=== PATIENT | male | born 1955 | race Caucasian/White ===

== ENCOUNTER → 2016-07-27 | Outpatient (CLI) | payer OTHER ==
[~2016-07-27] MED LIST: ALPHAGAN OPHTH D5 ML OU; ASPIRIN 32325 MG/TA1 PO; ASPIRIN 32325 MG/TAB PO; ATIVAN 0.50.5 MG/TAB PO; CEPHALEXIN500 M1 PO; CLEOCIN HC150 MG/CAP PO; DEPAKOTE500 MG PO; DOXYCYCLINE 10100 MG PO; FLAGYL; FLAX OIL1000 MG; FOLIC ACID 40400 MCG PO; HYDROCODONE/APAP; IRON TABLETS325 MG PO; LEXAPRO20 MG PO; LIPITOR 10MG10 MG PO; MELATONIN3 M1 PO; MICARDIS 40MG40 MG PO; MICARDIS HCT 121 TAB PO; MIRALAX PA17 GM/Dose PO; MOTRIN 800800 MG/TAB PO; MULTIPLE VITAMI1 CAP PO; MYCARDIS; NORCO 325 MG-51 TAB PO; NORCO 325 MG-7.1 TAB PO; PRILOSEC 20MG20 MG PO; PRILOSEC10 MG PO; PROVIGIL 100MG100 MG PO; VITAMIN C500 MG PO; XALATAN EYE DROPS OD
== END ==
LOC: BHSO 08:58
DX: F41.1 Generalized anxiety disorder (principal)

== ENCOUNTER → 2016-09-10 | Outpatient (CLI) | payer OTHER | LOC: BHSO 10:20 | DX: F41.1 Generalized anxiety disorder (principal) ==

== ENCOUNTER → 2016-10-26 | Outpatient (CLI) | payer OTHER | LOC: BHSO 09:04 | DX: F43.10 Post-traumatic stress disorder, unspecified (principal) ==

== ENCOUNTER → 2016-12-28 | Outpatient (CLI) | payer OTHER | LOC: BHSO 09:46 | DX: F43.10 Post-traumatic stress disorder, unspecified (principal) ==

== ENCOUNTER → 2017-03-12 | Outpatient (CLI) | payer OTHER | LOC: BHSO 09:44 | DX: F43.10 Post-traumatic stress disorder, unspecified (principal) ==

== ENCOUNTER → 2017-06-15 | Outpatient (CLI) | payer OTHER | LOC: BHSO 09:47 | DX: F41.1 Generalized anxiety disorder (principal) ==

== ENCOUNTER → 2017-07-19 | Outpatient (CLI) | payer OTHER | LOC: BHSO 10:44 | DX: F41.1 Generalized anxiety disorder (principal) | CPT/HCPCS: G0463 ==

== ENCOUNTER → 2017-08-19 | Outpatient (CLI) | payer OTHER | LOC: BHSO 10:39 | DX: F41.1 Generalized anxiety disorder (principal) | CPT/HCPCS: G0463 ==

== ENCOUNTER → 2021-10-22 | Outpatient (CLI) | payer MEDICARE, OTHER | LOC: COL.RAD 13:22 | DX: M47.816 Spondylosis without myelopathy or radiculopathy, lumbar region (principal); M48.061 Spinal stenosis, lumbar region without neurogenic claudication ==

== ENCOUNTER 2022-01-03 20:43 | Inpatient (IN) | payer MEDICARE, OTHER ==
[~2022-01-03] VITALS: Ht 182.9 cm; Wt 107.3 kg
[~2022-01-03 20:43] MED LIST changes: -FLAX OIL1000 MG; +FLAXSEED OIL1000 MG PO; -MULTIPLE VITAMI1 CAP PO; +MULTIPLE VITAMI1 TA5 PO
[2022-01-03 23:03] LABS: HEMOGLOBIN 11.5 g/dl (13.5-18.0); MEAN CELL VOLUME 92 fl (80.0-100.0); MEAN CORPUSCULAR HEMOGLOBIN 31 pg (27-31); MEAN CORPUSCULAR HGB CONC 33 g/dl (33.0-37.0); MEAN PLATELET VOLUME 9.9 fl (7.4-10.4); PLATELET COUNT 163 K/mm3 (130-400); RED BLOOD COUNT 3.74 M/mm3 (4.20-5.60); REDCELL DISTRIBUTION WIDTH-CV 13.6 % (11.5-14.5)
[2022-01-03 23:07] LABS: HEMATOCRIT 34.5 % (42.0-52.0)
[2022-01-03 23:24] LABS: ALBUMIN 3.5 gm/dL (3.4-4.8); BILIRUBIN,TOTAL 0.5 mg/dL (0.2-1.2); C-REACTIVE PROTEIN 4.39 mg/dL (0.00-0.50); CALCIUM 8.7 mg/dL (8.4-10.2); CREATININE, serum 1.35 mg/dL (0.72-1.25); POTASSIUM 4.1 mmol/L (3.5-4.5); TOTAL PROTEIN 6.8 gm/dL (6.2-8.1)
[2022-01-04 00:08] LABS: BASOPHIL 2 % (0-2); EOSINOPHIL 2 % (0-4); LYMPHOCYTE 17 % (20.0-51.0); METAMYELOCYTE 1 % (0-0); NEUTROPHILS 67 % (42.0-75.2); PLATELET ESTIMATE NORMAL (NORMAL)
[2022-01-04 01:19] LABS: COLLECTION METHOD CLEAN CATCH
[2022-01-04 01:24] LABS: PH 6 (5-8); SQUAMOUS EPITHELIAL 0-2 /hpf (0-10); URINE APPEARANCE Clear (CLEAR/HAZY); URINE BACTERIA None Seen /hpf (NONE SEEN); URINE BILIRUBIN Negative (NEGATIVE); URINE BLOOD Negative (NEGATIVE); URINE COLOR Straw (YELLOW); URINE GLUCOSE Negative (NEGATIVE); URINE KETONE Negative (NEGATIVE); URINE LEUKOCYTE ESTERASE Negative (NEGATIVE); URINE NITRATE Negative (NEGATIVE); URINE PROTEIN(semi-quant) Negative (NEGATIVE); URINE RBC None Seen /hpf (0-2); URINE UROBILINOGEN Negative (NEGATIVE)
[2022-01-04] MEDS ORDERED: GLUCOPHAGE XR500 M1 PO (15:13)
[2022-01-04] MEDS ORDERED: ZYLOPRIM 100MG100 MG PO (15:14)
[2022-01-04] MEDS ORDERED: LOPID 600M600 MG/TAB PO (15:14)
[2022-01-04] MEDS ORDERED: ONE DAILY ESSE0.5 MG PO (15:24)
[2022-01-04] MEDS ORDERED: DEPAKOTE500 MG PO (15:25)
[2022-01-04] MEDS ORDERED: PROVIGIL 100MG100 MG PO (15:26)
[2022-01-04] MEDS ORDERED: NUEDEXTA 20 MG-1 CAP PO (15:26)
[2022-01-04] MEDS ORDERED: MASON NATURAL1200 MG PO (15:27)
[2022-01-04] MEDS ORDERED: MELATONIN5 M1 SL (15:27)
[2022-01-04] MEDS ORDERED: PAMELOR 10MG10 MG PO (15:28)
[2022-01-04] MEDS ORDERED: ASPIRIN 32325 MG/TAB PO (15:28)
[2022-01-04] MEDS ORDERED: RISPERDAL 0.5M0.5 MG PO (15:28)
[2022-01-04] MEDS ORDERED: COMBIGAN 0.2%-0.5 ML OS (15:29)
[2022-01-04] MEDS ORDERED: INDERAL 10MG10 MG PO (15:30)
[2022-01-04 15:55] VITALS: BP 127/77; PULSE 73; TEMP 97.5
[2022-01-04 20:25] VITALS: BP 129/68; PULSE 87; TEMP 98.3
[2022-01-05 00:15] VITALS: BP 128/76; PULSE 96; TEMP 98.6
[2022-01-05 04:15] VITALS: BP 95/55; PULSE 80; TEMP 97.4
--- NOTE | 2022-01-05 05:45 | NUR ---
ASSESSMENT COMPLETE FOR THIS SHIFT. PT RESTLESS IN BED COMPLAINING OF ABD PAIN. PT GIVEN FENTANYL FOR PAIN. PT FELT PAIN MEDICATION WAS EFFECTIVE. PT DENIED CHEST PAIN, PALPITATIONS, SOB, N,V,D OR DIZZINESS. PT EXPRESSED NO OTHER NEEDS AT THIS TIME. CALL LIGHT CALL WITHIN REACH.
[2022-01-05 06:49] LABS: BASO % 0.2 % (0.0-2.0); EOS # 0.1 K/mm3 (0.0-0.7); EOS % 1.3 % (0.0-4.0); GRAN % 58.4 % (42.2-75.2); LYMPH # 1.9 K/mm3 (1.2-3.4); LYMPH % 22.1 % (20.0-51.0); MEAN CELL VOLUME 96 fl (80.0-100.0); MEAN CORPUSCULAR HGB CONC 32 g/dl (33.0-37.0); MEAN PLATELET VOLUME 9.9 fl (7.4-10.4); MONO # 1.5 K/mm3 (0.1-0.6); MONO % 17.1 % (1.7-9.3); PLATELET COUNT 149 K/mm3 (130-400); RED BLOOD COUNT 3.17 M/mm3 (4.20-5.60); REDCELL DISTRIBUTION WIDTH-CV 13.8 % (11.5-14.5)
[2022-01-05 06:50] LABS: HEMATOCRIT 30.5 % (42.0-52.0); HEMOGLOBIN 9.8 g/dl (13.5-18.0); MEAN CORPUSCULAR HEMOGLOBIN 31 pg (27-31)
[2022-01-05 07:14] LABS: ALBUMIN 2.9 gm/dL (3.4-4.8); BILIRUBIN,TOTAL 0.7 mg/dL (0.2-1.2); CALCIUM 8.3 mg/dL (8.4-10.2); CREATININE, serum 1.7 mg/dL (0.72-1.25); TOTAL PROTEIN 6.2 gm/dL (6.2-8.1)
[2022-01-05 07:36] VITALS: BP 112/60; PULSE 79; TEMP 97.7
--- NOTE | 2022-01-05 09:09 | NUR ---
PT RESTING IN BED. MORNING MEDICATIONS GIVEN. SHIFT ASSESSMENT COMPLETED. PT REPORTS ABDOMINAL PAIN OF 7/10 THIS AM, PRN PAIN MEDICATION GIVEN PER eMAR. PT DENIES ANY OTHER NEEDS AT THIS TIME. ABD ULTRASOUND COMPLETED THIS AM. PT REPORTS NOT HAVING A BM FOR A FEW DAYS NOW, BELIEVES IT IS BECAUSE OF LACK OF INTAKE, EDUCATED PT ON STOOL SOFTENERS, WILL CONTINUE TO MONITOR AT THIS TIME.
--- NOTE | 2022-01-05 09:14 | NUR ---
SW met with the patient to discuss discharge plan. The patient lives in [place] with his , Yoselin (ph#[phone]). He reports independence with ADLs and does not have any DME. The patient's PCP is Dr. Manas Ramirez and [facility] [address]. The patient does not have a DPOA-HC and he was not interested in completing one at this time. The patient plans to return home with his upon discharge. No additional needs at this time. *Discharge plan: home with *
[2022-01-05 11:07] VITALS: BP 111/68; PULSE 73; TEMP 98.2
--- NOTE | 2022-01-05 14:33 | NUR ---
Hilda: Chriss Situation: Tour Director went to room on rounds Background: PT was sitting up with his serivce dog Assessment: PT seemed content He asked for a prayer. Tour Director was able to pray with PT. Pt appreciated the visit Recommendation: Tour Director will follow up as needed
[2022-01-05 16:16] VITALS: BP 99/56; PULSE 71; TEMP 98.3
[2022-01-05 19:46] VITALS: BP 116/66; PULSE 74; TEMP 97.9
[2022-01-06] VITALS (15 sets, daily range): BP systolic 100–142; BP diastolic 48–115; PULSE 72–121; TEMP 97.4–98.5
--- NOTE | 2022-01-06 00:56 | NUR ---
Report received, pt eating his evening meal at that time. Assessment and medication administration completed without difficulty. Pt has had complaints of pain throughout the shift; PRN pain medication given per eMAR. Pt currently resting in bed. All other needs met at this time, call light within reach.
--- NOTE | 2022-01-06 05:54 | NUR ---
Pt requested marie, this nurse explained that he is still on clear liquids before going to NPO at 0600. This nurse offered an alternative, georgian ice and the pt was agreeable. Pt tolerated well. All other needs met at this time.
--- NOTE | 2022-01-06 18:23 | NUR ---
171 - Patient arrived from PACU on 6 lpm oxymask. AOx4, drowsy, but easily aroused to voice. Vital signs WNL. Fentanyl given per order parameters for postoperative pain. See SEP. 4 abdominal surgical incisions C/D/I. ALICE drain patent to bulb suction.
[2022-01-07 03:17] VITALS: BP 112/67; PULSE 81; TEMP 98.5
[2022-01-07 05:59] LABS: BASO % 0.1 % (0.0-2.0); GRAN # 7.3 K/mm3 (1.4-6.5); GRAN % 82.3 % (42.2-75.2); LYMPH # 0.7 K/mm3 (1.2-3.4); LYMPH % 7.7 % (20.0-51.0); MEAN CELL VOLUME 96 fl (80.0-100.0); MEAN CORPUSCULAR HGB CONC 32 g/dl (33.0-37.0); MEAN PLATELET VOLUME 9.7 fl (7.4-10.4); MONO # 0.8 K/mm3 (0.1-0.6); MONO % 9.1 % (1.7-9.3); PLATELET COUNT 177 K/mm3 (130-400); RED BLOOD COUNT 3.24 M/mm3 (4.20-5.60); REDCELL DISTRIBUTION WIDTH-CV 13.8 % (11.5-14.5)
[2022-01-07 06:03] LABS: HEMOGLOBIN 9.9 g/dl (13.5-18.0); MEAN CORPUSCULAR HEMOGLOBIN 31 pg (27-31)
[2022-01-07 06:14] LABS: ALBUMIN 2.8 gm/dL (3.4-4.8); BILIRUBIN,TOTAL 0.4 mg/dL (0.2-1.2); CALCIUM 8.2 mg/dL (8.4-10.2); CREATININE, serum 2.15 mg/dL (0.72-1.25); TOTAL PROTEIN 6.7 gm/dL (6.2-8.1)
[2022-01-07 07:29] VITALS: BP 112/70; PULSE 87; TEMP 97.3
[2022-01-07 11:28] VITALS: BP 127/71; PULSE 93; TEMP 98.6
[2022-01-07 15:22] VITALS: BP 128/72; PULSE 77; TEMP 98
[2022-01-07 20:00] VITALS: BP 129/79; PULSE 85; TEMP 98
[2022-01-07 23:56] VITALS: BP 122/68; PULSE 74; TEMP 97.9
--- NOTE | 2022-01-08 02:22 | NUR ---
Pt alert and oriented, follows commands, resting quietly. 4 abdominal incision sites noted. covered with bandaids. 1 lower abdominal incision site is covered with a gauze dressing d/t previous drainage from site. No drainage from site noted at this time. ALICE drain noted in the right abdomen. Dressing had significant dry/bloody drainage. Dressing changed. Sutures intact around drain. No significant edema/drainage from ALICE drain site. 30 ml of serosanginuous drainage emptied so far. Prn fentanyl administered x1 for abdominal pain, pt reports relief. Pt denies pain in other areas. Shift assessment performed. Medications administered per orders and education provided. NS continues running at 100 ml/hr. VS stable. Pt afebrile. 4L oxymask on at night, room air during day. Pt up to void. Pt tolerating PO. Low fat diet maintained. Pt does not report any questions at this time, will continue to monitor.
[2022-01-08 03:44] VITALS: BP 126/71; PULSE 73; TEMP 97.7
--- NOTE | 2022-01-08 04:53 | NUR ---
No adverse events overnight. Pt alert and oriented, resting. Pt currently does not report any pain. Q2 fentanyl administered x1 overnight for right lower abdomen pain and pt reported relief. Incision sites remain clean/dry/intact. 30 ml of serosanginous drainage emptied overnight, will empty again this morning. Fat control diet maintained. Fluids continue overnight. PO antibx continued. Drain site is clean/dry/intact. No swelling/drainage noted. VS stable. Pt on 4L oxymask at night, room air during day. Pt does not report any questions at this time, will continue to monitor.
[2022-01-08 07:00] LABS: ALBUMIN 2.6 gm/dL (3.4-4.8); BILIRUBIN,TOTAL 0.3 mg/dL (0.2-1.2); CALCIUM 8.2 mg/dL (8.4-10.2); CREATININE, serum 1.54 mg/dL (0.72-1.25); POTASSIUM 4.5 mmol/L (3.5-4.5); TOTAL PROTEIN 6.4 gm/dL (6.2-8.1)
[2022-01-08 07:16] VITALS: BP 112/57; PULSE 73; TEMP 98
[2022-01-08 11:08] VITALS: BP 119/65; PULSE 76; TEMP 98
[2022-01-08] MEDS ORDERED: LEVAQUIN 750MG750 M1 PO (12:31)
[2022-01-08] MEDS ORDERED: NORCO 325 MG-51 TAB PO (12:31)
--- NOTE | 2022-01-08 14:00 | NUR ---
PT ALICE DRAIN DC W MIMINAL DRAINAGE. IV DC. MEDS CALLD TO [facility]. DC INSTRUCT GIVEN, PT V/U.
== END 2022-01-08 13:30 | disposition home or self-care (01) | DRG 418 ==
LOC: COL.ER 20:43 → MEDICAL 01-04 01:04
PROVIDERS: Physician Assistant; ADMIT Surgery
PROC: 8E0W4CZ Robotic Assisted Procedure of Trunk Region, Percutaneous Endoscopic Approach (ICD-10-PCS; 2022-01-06)
PROC: 0FT44ZZ Resection of Gallbladder, Percutaneous Endoscopic Approach (ICD-10-PCS; principal; 2022-01-06 14:00)
DX: K80.00 Calculus of gallbladder with acute cholecystitis without obstruction (principal); K82.1 Hydrops of gallbladder; E11.9 Type 2 diabetes mellitus without complications; I10 Essential (primary) hypertension; E78.5 Hyperlipidemia, unspecified; K21.9 Gastro-esophageal reflux disease without esophagitis; D72.829 Elevated white blood cell count, unspecified; E86.0 Dehydration; K82.A1 Gangrene of gallbladder in cholecystitis; M19.90 Unspecified osteoarthritis, unspecified site; F32.A Depression, unspecified; F41.9 Anxiety disorder, unspecified; Z88.6 Allergy status to analgesic agent; Z91.041 Radiographic dye allergy status; Z91.013 Allergy to seafood; Z79.84 Long term (current) use of oral hypoglycemic drugs; Z87.891 Personal history of nicotine dependence; Z72.89 Other problems related to lifestyle; Z23 Encounter for immunization; Z87.19 Personal history of other diseases of the digestive system
CPT/HCPCS: OP; C1769; G0378; J0690; J1100; J1170; J1956; J2405; J2704; J3010; J7030; J7042; Q9967

== ENCOUNTER → 2022-02-13 | Outpatient (CLI) | payer MEDICARE, OTHER ==
[~2022-02-13] MED LIST changes: +COMBIGAN 0.2%-0.5 ML OS; +GLUCOPHAGE XR500 M1 PO; +INDERAL 10MG10 MG PO; +LEVAQUIN 750MG750 M1 PO; +LOPID 600M600 MG/TAB PO; +MASON NATURAL1200 MG PO; +MELATONIN5 M1 SL; +NUEDEXTA 20 MG-1 CAP PO; +ONE DAILY ESSE0.5 MG PO; +PAMELOR 10MG10 MG PO; +RISPERDAL 0.5M0.5 MG PO; +ZYLOPRIM 100MG100 MG PO
== END ==
LOC: COL.RAD 08:32
DX: G31.1 Senile degeneration of brain, not elsewhere classified (principal); R90.82 White matter disease, unspecified

== ENCOUNTER 2022-07-31 05:20 | Inpatient (IN) | payer MEDICARE, OTHER ==
[~2022-07-31] VITALS: Ht 182.9 cm; Wt 109.0 kg
[2022-07-31] VITALS (13 sets, daily range): BP systolic 121–151; BP diastolic 69–90; PULSE 90–107; TEMP 97.5–100.7
[2022-07-31 05:48] LABS: BASO % 0.4 % (0.0-2.0); EOS # 0.1 K/mm3 (0.0-0.7); EOS % 0.5 % (0.0-4.0); GRAN # 7.8 K/mm3 (1.4-6.5); GRAN % 77.5 % (42.2-75.2); HEMATOCRIT 41.2 % (42.0-52.0); HEMOGLOBIN 13.8 g/dl (13.5-18.0); MEAN CELL VOLUME 92 fl (80.0-100.0); MEAN CORPUSCULAR HEMOGLOBIN 31 pg (27-31); MEAN CORPUSCULAR HGB CONC 34 g/dl (33.0-37.0); MEAN PLATELET VOLUME 10.1 fl (7.4-10.4); MONO # 1.1 K/mm3 (0.1-0.6); MONO % 10.9 % (1.7-9.3); PLATELET COUNT 156 K/mm3 (130-400); RED BLOOD COUNT 4.49 M/mm3 (4.20-5.60); REDCELL DISTRIBUTION WIDTH-CV 13.7 % (11.5-14.5)
[2022-07-31 06:07] LABS: ALANINE AMINOTRANSFERASE 23 U/L (0-55); ALBUMIN 3.8 gm/dL (3.4-4.8); ALKALINE PHOSPHATASE 55 U/L (40-150); ANION GAP 15 mmol/L (7-16); AST,SGOT 30 U/L (5-34); BILIRUBIN,TOTAL 0.6 mg/dL (0.2-1.2); BLOOD UREA NITROGEN 27 mg/dL (8-26); CALCIUM 9.7 mg/dL (8.4-10.2); CARBON DIOXIDE 20 mmol/L (23-31); CHLORIDE 103 mmol/L (98-107); CREATINE KINASE 60 U/L (30-200); CREATININE, serum 2.05 mg/dL (0.72-1.25); GLUCOSE 131 mg/dL (70-99); POTASSIUM 4.6 mmol/L (3.5-4.5); SODIUM 138 mmol/L (136-145); TOTAL PROTEIN 7.7 gm/dL (6.2-8.1)
[2022-07-31 06:15] LABS: TROPONIN-I < 0.010 ng/mL (0.00-0.033)
[2022-07-31] MEDS ORDERED: COMBIGAN 0.2%-0.5 ML (06:38)
[2022-07-31 07:46] LABS: COLLECTION METHOD CLEAN CATCH
[2022-07-31 08:07] LABS: MUCOUS Present (NOT PRESENT); SQUAMOUS EPITHELIAL 0-2 /hpf (0-10); URINE BACTERIA Rare /hpf (NONE SEEN)
[2022-07-31 08:09] LABS: PH 6.5 (5.0-8.5); URINE APPEARANCE Clear (CLEAR/HAZY); URINE BLOOD 1+ (NEGATIVE); URINE COLOR Yellow (YELLOW); URINE GLUCOSE Negative (NEGATIVE); URINE KETONE 1+ (NEGATIVE); URINE NITRATE Negative (NEGATIVE); URINE PROTEIN(semi-quant) 1+ (NEGATIVE); URINE UROBILINOGEN 0.2 E.U/dL (0.2-1.0)
--- NOTE | 2022-07-31 14:50 | NUR ---
Pt's brought up a concern of patient's urine output decrease considering the amounts of fluids the patient has recieved. Bladder scan performed with >[address] Cotto notified, order to straight cath.
--- NOTE | 2022-07-31 15:31 | NUR ---
Pt straight cath'd 500mls out. Pt urinated approximately 100 mls prior to this.
[2022-07-31 17:29] LABS: CSF APPEARANCE CLEAR; CSF COLOR COLORLESS
[2022-07-31 17:30] LABS: CSF RBC 1 /mm3 (0-0)
[2022-07-31 17:42] LABS: CSF MONONUCLEAR 100 % (70-100); CSF POLYMORPHONUCLEAR 0 % (0-6)
[2022-07-31 17:49] LABS: GLUCOSE,CSF 61 mg/dL (40-70); TOTAL PROTEIN,CSF 38 mg/dL (15-45)
--- NOTE | 2022-07-31 18:54 | NUR ---
Pt on post ops from LP, reported he felt like "crap". PRN Tylenol administered for headache and increased temp. Dr. Cotto made aware. Pt very weak, attempted to sit on the side of the bed but unable to support himself. POC discussed with patient and his . No needs at this time.
[2022-08-01] VITALS (11 sets, daily range): BP systolic 129–155; BP diastolic 60–78; PULSE 85–90; TEMP 97.5–99.1
[2022-08-01 06:26] LABS: BASO % 0.4 % (0.0-2.0); EOS % 0.3 % (0.0-4.0); GRAN # 5.1 K/mm3 (1.4-6.5); GRAN % 64.9 % (42.2-75.2); LYMPH # 1.5 K/mm3 (1.2-3.4); LYMPH % 18.6 % (20.0-51.0); MEAN CELL VOLUME 93 fl (80.0-100.0); MEAN CORPUSCULAR HGB CONC 33 g/dl (33.0-37.0); MEAN PLATELET VOLUME 10.5 fl (7.4-10.4); MONO # 1.2 K/mm3 (0.1-0.6); MONO % 15.2 % (1.7-9.3); PLATELET COUNT 148 K/mm3 (130-400); RED BLOOD COUNT 3.57 M/mm3 (4.20-5.60); REDCELL DISTRIBUTION WIDTH-CV 13.5 % (11.5-14.5)
[2022-08-01 06:33] LABS: CALCIUM 8.5 mg/dL (8.4-10.2); CREATININE, serum 1.2 mg/dL (0.72-1.25); POTASSIUM 3.7 mmol/L (3.5-4.5)
[2022-08-01 06:46] LABS: HEMATOCRIT 33.2 % (42.0-52.0); HEMOGLOBIN 10.9 g/dl (13.5-18.0); MEAN CORPUSCULAR HEMOGLOBIN 31 pg (27-31)
--- NOTE | 2022-08-01 08:30 | NUR ---
Pt awake and alert sitting in bed. Pt reports continued weakness this AM. Weak grasp noted bilaterally, pt reports inability to sit up independently. Assisted to new position, reports limited pain in back while moving, improved once repositioned.
--- NOTE | 2022-08-01 18:41 | NUR ---
Pt's mobility improved throughout the day. Pt ambulating to the bathroom multiple times throughout the day with minimal assistance needed. Pt reports weakness improving. updated on patient's condition.
[2022-08-02] VITALS (10 sets, daily range): BP systolic 132–147; BP diastolic 55–88; PULSE 77–89; TEMP 97.5–98.4
[2022-08-02 06:24] LABS: BASO % 0.4 % (0.0-2.0); EOS # 0.2 K/mm3 (0.0-0.7); EOS % 2.8 % (0.0-4.0); HEMOGLOBIN 12.2 g/dl (13.5-18.0); LYMPH # 1.7 K/mm3 (1.2-3.4); LYMPH % 23.6 % (20.0-51.0); MEAN CELL VOLUME 90 fl (80.0-100.0); MEAN CORPUSCULAR HEMOGLOBIN 31 pg (27-31); MEAN CORPUSCULAR HGB CONC 34 g/dl (33.0-37.0); MEAN PLATELET VOLUME 9.8 fl (7.4-10.4); MONO # 1.2 K/mm3 (0.1-0.6); MONO % 16.5 % (1.7-9.3); PLATELET COUNT 145 K/mm3 (130-400); RED BLOOD COUNT 3.97 M/mm3 (4.20-5.60); REDCELL DISTRIBUTION WIDTH-CV 13.3 % (11.5-14.5)
[2022-08-02 06:35] LABS: HEMATOCRIT 35.8 % (42.0-52.0)
[2022-08-02 06:38] LABS: CREATININE, serum 1.13 mg/dL (0.72-1.25); POTASSIUM 3.5 mmol/L (3.5-4.5)
--- NOTE | 2022-08-02 07:26 | NUR ---
PT AWAKE, ALERT AND ORIENTED IN BED. PT REPORTS HE IS FEELING BETTER AND STRONGER TODAY. DENIES ANY NEEDS AT THIS TIME.
--- NOTE | 2022-08-02 10:59 | NUR ---
After bathing, a red inflamed area with hives on the patient's right buttock was noted. Patient reports inflammation starting on , with this RN noting increased inflammation versus 08/01. Dr. Cotto notified, instructed to continue to monitor and keep clean/dry.
--- NOTE | 2022-08-02 11:49 | NUR ---
SW met with patient to complete intake. Patient provides that he lives in [facility] with spouse Yoselin [phone]. Patient provides that he utilizes a cane at home and a walker when needed. Patient states is independent with ADL's, and no home health services at this time. PCP is Dr. Ramirez, and pharmacy is [facility] DPOA/HC is spouse. DC plan at home. SW will continue to follow. DC plan: home
--- NOTE | 2022-08-02 18:06 | NUR ---
PT AMBULATED TO BATHROOM AND ASSISTED BACK INTO BED. MOBILITY IMPROVING. CALL LIGHT IN REACH, DENIES PAIN OR OTHER NEEDS AT THIS TIME.
[2022-08-03] VITALS: BP 143/84; PULSE 76; TEMP 97.7
[2022-08-03 04:54] VITALS: BP 144/76; PULSE 74; TEMP 97.7
[2022-08-03 06:32] LABS: BASO % 0.5 % (0.0-2.0); EOS # 0.4 K/mm3 (0.0-0.7); GRAN # 3.2 K/mm3 (1.4-6.5); GRAN % 53.7 % (42.2-75.2); HEMOGLOBIN 11.6 g/dl (13.5-18.0); LYMPH # 1.6 K/mm3 (1.2-3.4); MEAN CELL VOLUME 89 fl (80.0-100.0); MEAN CORPUSCULAR HEMOGLOBIN 30 pg (27-31); MEAN CORPUSCULAR HGB CONC 34 g/dl (33.0-37.0); MEAN PLATELET VOLUME 10.2 fl (7.4-10.4); MONO # 0.8 K/mm3 (0.1-0.6); PLATELET COUNT 163 K/mm3 (130-400); RED BLOOD COUNT 3.82 M/mm3 (4.20-5.60); REDCELL DISTRIBUTION WIDTH-CV 13.3 % (11.5-14.5)
[2022-08-03 06:56] LABS: CALCIUM 8.8 mg/dL (8.4-10.2); CREATININE, serum 1.15 mg/dL (0.72-1.25); POTASSIUM 3.5 mmol/L (3.5-4.5)
--- NOTE | 2022-08-03 07:35 | NUR ---
PATIENT AWAKE, ALERT AND ORIENTED. ASSISTED TO THE BATHROOM, AMBULATED SAFELY USING FWW. COMPLAINTS OF HEADACHE, TYLENOL ADMINISTERED. DENIES ANY OTHER NEEDS AT THIS TIME. CALL LIGHT WITHIN REACH, BED IN LOWEST POSITION.
[2022-08-03 08:00] VITALS: BP 139/75; PULSE 75; TEMP 97.6
[2022-08-03] MEDS ORDERED: LEVAQUIN 750MG750 M1 PO (08:34)
[2022-08-03] MEDS ORDERED: COZAAR 50MG50 MG/TAB PO (08:35)
--- NOTE | 2022-08-03 08:51 | NUR ---
Patient scheduled to discharge later today. [facility]. provided along with education. Patient verbalized his agreement with discharge plan of home with HH. Signed original placed in the patients chart and copy provided to the patient. SW discussed HH options with the patient and provided and provided him with the [email or web address] list of home health agencies. Patient verbalizes that he would like to talk with his Yoselin about options, but is leaning towards [facility]. SW informed patient to alert either his RN or SW as to which agency he picks.
[2022-08-03 10:18] LABS: HSV 2 DNA PCR QUAL Not Detected (())
--- NOTE | 2022-08-03 11:22 | NUR ---
PT DISCHARGED TO HOME ACCOMPANIED BY . PT EDUCATED ON DISCHARGE INSTRUCTIONS AND NEW MEDICATIONS. PT AND VERBALIZED UNDERSTANDING. PT ACCOMPANIED TO CAR BY NURSING STAFF.
--- NOTE | 2022-08-03 15:19 | NUR ---
(LATE ENTRY) SW met with patient prior to him leaving asking what HH agency he would like to go with. Patient verbalized that he has not talked to his at this time, but verbalized that this SW [facility]. Phone call made to Ryland at [facility]. Referral sent and Ryland verbalized his acceptance. Discharge plan: Home with [facility]
== END 2022-08-03 11:24 | disposition home health service (06) | DRG 683 ==
LOC: COL.ER 05:20 → MEDICAL 08:17
PROVIDERS: Emergency Medicine; ADMIT Student in an Organized Health Care Education/Training Program
PROC: 009U3ZX Drainage of Spinal Canal, Percutaneous Approach, Diagnostic (ICD-10-PCS; principal; 2022-08-03)
PROC: B01B1ZZ Fluoroscopy of Spinal Cord using Low Osmolar Contrast (ICD-10-PCS; 2022-08-03)
DX: N17.9 Acute kidney failure, unspecified (principal); R65.10 Systemic inflammatory response syndrome (SIRS) of non-infectious origin without acute organ dysfunction; K21.9 Gastro-esophageal reflux disease without esophagitis; Z96.661 Presence of right artificial ankle joint; E78.00 Pure hypercholesterolemia, unspecified; I45.10 Unspecified right bundle-branch block; F10.90 Alcohol use, unspecified, uncomplicated; Z20.822 Contact with and (suspected) exposure to COVID-19; M10.9 Gout, unspecified; F41.9 Anxiety disorder, unspecified; F32.A Depression, unspecified; I12.9 Hypertensive chronic kidney disease with stage 1 through stage 4 chronic kidney disease, or unspecified chronic kidney disease; E11.22 Type 2 diabetes mellitus with diabetic chronic kidney disease; K80.20 Calculus of gallbladder without cholecystitis without obstruction; N18.9 Chronic kidney disease, unspecified; G89.29 Other chronic pain; M54.9 Dorsalgia, unspecified; Z79.82 Long term (current) use of aspirin; Z79.84 Long term (current) use of oral hypoglycemic drugs; Z90.49 Acquired absence of other specified parts of digestive tract; Z88.6 Allergy status to analgesic agent; Z91.041 Radiographic dye allergy status; Z91.013 Allergy to seafood; Z23 Encounter for immunization
CPT/HCPCS: J0692; J0696; J1644; J7030

== ENCOUNTER 2023-07-12 08:50 | Emergency (ER) | payer MEDICARE, OTHER ==
[~2023-07-12] VITALS: Ht 182.9 cm; Wt 100.0 kg
[~2023-07-12 08:50] MED LIST changes: +COMBIGAN 0.2%-0.5 ML; +COZAAR 50MG50 MG/TAB PO
[2023-07-12 09:01] VITALS: TEMP 97.4
[2023-07-12 10:19] LABS: BASO % 0.2 % (0.0-2.0); EOS % 0.2 % (0.0-4.0); GRAN # 10.5 K/mm3 (1.4-6.5); GRAN % 80.8 % (42.2-75.2); HEMATOCRIT 43.8 % (42.0-52.0); HEMOGLOBIN 13.1 g/dl (13.5-18.0); LYMPH # 1.2 K/mm3 (1.2-3.4); LYMPH % 9.3 % (20.0-51.0); MEAN CELL VOLUME 83 fl (80.0-100.0); MEAN CORPUSCULAR HEMOGLOBIN 25 pg (27-31); MEAN CORPUSCULAR HGB CONC 30 g/dl (33.0-37.0); MEAN PLATELET VOLUME 10.8 fl (7.4-10.4); MONO # 1.2 K/mm3 (0.1-0.6); MONO % 9.1 % (1.7-9.3); PLATELET COUNT 221 K/mm3 (130-400); RED BLOOD COUNT 5.25 M/mm3 (4.20-5.60); REDCELL DISTRIBUTION WIDTH-CV 17.6 % (11.5-14.5)
[2023-07-12 10:35] LABS: ALBUMIN 3.9 gm/dL (3.4-4.8); BILIRUBIN,TOTAL 0.6 mg/dL (0.2-1.2); C-REACTIVE PROTEIN 2.28 mg/dL (0.00-0.50); CALCIUM 9.8 mg/dL (8.4-10.2); CREATININE, serum 1.11 mg/dL (0.72-1.25); POTASSIUM 4.1 mmol/L (3.5-4.5); TOTAL PROTEIN 7.7 gm/dL (6.2-8.1)
[2023-07-12] MEDS ORDERED: FLAGYL500 MG PO (13:49)
[2023-07-12] MEDS ORDERED: AMOXICILLIN 8751 TAB PO (13:51)
[2023-07-12 14:05] VITALS: BP 133/96; PULSE 101
== END 2023-07-12 14:09 | disposition home or self-care (01) ==
LOC: COL.ER 08:50
PROVIDERS: Nurse Practitioner Family
DX: K57.32 Diverticulitis of large intestine without perforation or abscess without bleeding (principal); Z90.49 Acquired absence of other specified parts of digestive tract; Z87.891 Personal history of nicotine dependence
CPT/HCPCS: J1885; J2405; J2543; J3010; J7030; Q9967